=== PATIENT | female | born 1940 | race Two or more races ===

== ENCOUNTER 2017-05-19 09:16 | Outpatient (CLI) | payer OTHER | END 2017-05-19 09:22 | disposition home or self-care (01) | LOC: RAD 09:16 | DX: M25.512 Pain in left shoulder (principal) ==

== ENCOUNTER 2018-01-18 10:04 | Outpatient (CLI) | payer OTHER | END 2018-01-18 10:09 | disposition home or self-care (01) | LOC: MAMO-SONO 10:04 | DX: Z12.31 Encounter for screening mammogram for malignant neoplasm of breast (principal); Z87.898 Personal history of other specified conditions ==

== ENCOUNTER 2018-01-28 11:07 | Outpatient (CLI) | payer OTHER | END 2018-01-28 11:21 | disposition home or self-care (01) | LOC: NUCLEAR 11:07 | DX: M81.0 Age-related osteoporosis without current pathological fracture (principal) ==

== ENCOUNTER 2019-09-12 09:38 | Outpatient (CLI) | payer OTHER | END 2019-09-12 09:39 | disposition home or self-care (01) | LOC: MAMO-SONO 09:38 | PROVIDERS: ATTEND General Practice | DX: Z12.31 Encounter for screening mammogram for malignant neoplasm of breast (principal) ==

== ENCOUNTER → 2020-05-14 | Outpatient (CLI) | payer OTHER | END | disposition home or self-care (01) | LOC: NUCLEAR 11:48 | PROVIDERS: ATTEND General Practice | DX: M81.0 Age-related osteoporosis without current pathological fracture (principal) ==